=== PATIENT | female | born 1960 | race African-American/Black ===

== ENCOUNTER → 2016-09-08 | Outpatient (CLI) | payer MEDICARE, MEDICAID ==
[~2016-09-08] MED LIST: ALBU8.5H5 INH; AMIT25TA PO; AMLO5TAB2 PO; BACL-19 PO; BECL8.7A6 INH; BUSP10TA PO; GABA600T2 PO; HYDR25CA94 PO; METH500T7 PO; NAPR220C2 PO; QUET400T4 PO; TIZA2TAB PO
[2016-09-08 15:46] LABS: ASPARTATE AMINO TRANSFERASE 8 U/L (15-37); BLOOD UREA NITROGEN 16 mg/dL (7-18)
== END | disposition home or self-care (01) ==
LOC: CFH 14:47
PROVIDERS: ATTEND Physician Assistant
DX: K62.5 Hemorrhage of anus and rectum (principal); K62.89 Other specified diseases of anus and rectum; K52.9 Noninfective gastroenteritis and colitis, unspecified; R19.7 Diarrhea, unspecified
CPT/HCPCS: 36415; 80053; 84443; 85025

== ENCOUNTER 2017-05-12 11:39 | Emergency (ER) | payer MEDICARE, MEDICAID ==
[~2017-05-12] VITALS: Ht 157.5 cm; Wt 153.2 kg
[2017-05-12] MEDS ORDERED: ALBUTEROL/IPRATROPIUM 2.5MG/0.5MG, 3 ML NPPB ONE (13:00)
[2017-05-12] MEDS ORDERED: ALBUTEROL/IPRATROPIUM 2.5MG/0.5MG, 3 ML ONE (13:31)
[2017-05-12] MEDS ORDERED: SODIUM CHLORIDE 0.9% 1,000ML IVBOLUS ONE (14:00)
[2017-05-12 15:07] VITALS: BP 114/82
== END 2017-05-12 15:09 | disposition home or self-care (01) ==
LOC: ED 14:03
DX: M94.0 Chondrocostal junction syndrome [Tietze] (principal); J98.01 Acute bronchospasm; I10 Essential (primary) hypertension; J45.909 Unspecified asthma, uncomplicated; E66.01 Morbid (severe) obesity due to excess calories; Z68.44 Body mass index [BMI] 60.0-69.9, adult; G89.29 Other chronic pain; M54.2 Cervicalgia; Z90.49 Acquired absence of other specified parts of digestive tract; F17.210 Nicotine dependence, cigarettes, uncomplicated; Z86.14 Personal history of Methicillin resistant Staphylococcus aureus infection
CPT/HCPCS: 71046; 93005; 94640; 96360; 99285; J7030; J7512; J7620

== ENCOUNTER 2019-02-22 11:18 | Outpatient (CLI) | payer MEDICARE, MEDICAID ==
[~2019-02-22 11:18] MED LIST changes: +ALBU18HF INH; +AMIT50TA PO; +AMLO-150 PO; -AMLO5TAB2 PO; -GABA600T2 PO; +GABA600T7 PO; +QUET200T4 PO; +QUET25TA5 PO; -TIZA2TAB PO; +TIZA2TAB2 PO; +inhaler INH
[2019-02-22 13:25] LABS: T4 (THYROXINE) 9.1 mcg/dL (4.8-13.9)
== END 2019-02-22 23:59 | disposition home or self-care (01) ==
LOC: CFH 11:18
PROVIDERS: ATTEND Physician Assistant Medical
DX: Z01.810 Encounter for preprocedural cardiovascular examination (principal); G47.33 Obstructive sleep apnea (adult) (pediatric); I10 Essential (primary) hypertension; R06.02 Shortness of breath; E66.9 Obesity, unspecified
CPT/HCPCS: 36415; 84436; 84443; 84481

== ENCOUNTER → 2019-03-18 | Outpatient (CLI) | payer MEDICARE, MEDICAID | END | disposition home or self-care (01) | LOC: CVU 10:07 | PROVIDERS: ATTEND Physician Assistant Medical | DX: I34.8 Other nonrheumatic mitral valve disorders (principal); I51.7 Cardiomegaly; Z87.891 Personal history of nicotine dependence | CPT/HCPCS: 93306 ==

== ENCOUNTER 2019-04-27 09:46 | Emergency (ER) | payer MEDICAID, MEDICARE ==
[~2019-04-27] VITALS: Ht 157.5 cm; Wt 136.0 kg
[2019-04-27] MEDS ORDERED: BUDESONIDE 0.5 MG/2 ML INHA ONE (10:20)
[2019-04-27] MEDS ORDERED: ALBUTEROL/IPRATROPIUM 2.5MG/0.5MG, 3 ML ONE (10:20)
[2019-04-27] MEDS ORDERED: methylPREDNISolone SOD SUCC 125 MG/2 ML ONE (10:27)
[2019-04-27] MEDS ORDERED: ONDANSETRON 2MG/ML, 2ML ONE (10:27)
[2019-04-27] MEDS ORDERED: ONDANSETRON 2MG/ML, 2ML IVPush ONE (10:30)
[2019-04-27] MEDS ORDERED: BUDESONIDE 0.5 MG/2 ML INHA INH ONE (10:30)
[2019-04-27] MEDS ORDERED: methylPREDNISolone SOD SUCC 125 MG/2 ML IVPush ONE (10:30)
[2019-04-27] MEDS ORDERED: SODIUM CHLORIDE FLUSH 10ML SYR IVF ONE (10:30)
[2019-04-27] MEDS ORDERED: ALBUTEROL/IPRATROPIUM 2.5MG/0.5MG, 3 ML NPPB PRN (10:30)
[2019-04-27] MEDS ORDERED: SODIUM CHLORIDE 0.9% 1,000ML IVBOLUS ONE (10:30)
[2019-04-27 10:39] VITALS: BP 111/45
--- NOTE | 2019-04-27 10:44 | NUR ---
PT WITH C/O N/V X2 DAYS + DIARRHEA. PT STATES HAVING SOB STARTING 4 DAYS AGO, PT WITH HX OF ASTHMA. PT DENIES CP AT THIS TIME. PT TO BP, CARD MONITOR, CONT PULSE OX. PIV INITIATED AND PT MEDICATED PER MAR
[2019-04-27 10:47] LABS: ALANINE AMINOTRANSFERASE 19 U/L (12-78); ANION GAP 10 mmol/L (5-15); CALCIUM 8.7 mg/dL (8.5-10.1); CHLORIDE 108 mmol/L (98-107); CREATININE 0.94 mg/dL (0.55-1.02)
[2019-04-27 10:49] LABS: ALKALINE PHOSPHATASE 85 U/L (45-117); BILIRUBIN,TOTAL 0.7 mg/dL (0.2-1.0); TOTAL PROTEIN 7.5 g/dL (6.4-8.2)
[2019-04-27 11:04] LABS: BASOPHILS # (AUTO) 0.03 x10^3/uL (0-0.1); BASOPHILS % (AUTO) 0 % (0-1); EOSINOPHILS # (AUTO) 0.27 x10^3/uL (0-0.4); EOSINOPHILS % (AUTO) 3 % (1-7); LYMPHOCYTES # (AUTO) 2.39 x10^3/uL (1-3.4); LYMPHOCYTES % (AUTO) 29 % (22-44); MD NO; MEAN CORPUSCULAR HGB CONC 31.6 g/dL (32.4-35.8); MEAN CORPUSCULAR VOLUME 85.3 fL (80-100); MEAN PLATELET VOLUME 8.5 fL (7.4-10.4); MONOCYTES % (AUTO) 5 % (2-9); NEUTROPHILS # (AUTO) 5.07 x10^3/uL (1.8-6.8); NEUTROPHILS % (AUTO) 62 % (42-75); PLATELET COUNT 380 x10^3/uL (130-400); RED BLOOD COUNT 5.11 x10^6/uL (3.82-5.3); RED CELL DISTRIBUTION WIDTH 14.4 % (9.6-15.2)
[2019-04-27] MEDS ORDERED: SODIUM CHLORIDE 0.9%, 500ML IVBOLUS ONE (11:30)
== END 2019-04-27 12:49 ==
LOC: ED 11:40
DX: J20.8 Acute bronchitis due to other specified organisms (principal); R19.7 Diarrhea, unspecified; R11.10 Vomiting, unspecified; I10 Essential (primary) hypertension; J45.909 Unspecified asthma, uncomplicated; E66.01 Morbid (severe) obesity due to excess calories; Z87.891 Personal history of nicotine dependence; Z90.49 Acquired absence of other specified parts of digestive tract
CPT/HCPCS: 36415; 71045; 80053; 83735; 85025; 93005; 94640; 96361; 96374; 96375; 99284; J2405; J2930; J7030; J7040; J7620; J7626

== ENCOUNTER 2020-12-27 09:50 | Outpatient (CLI) | payer MEDICARE, MEDICAID ==
[~2020-12-27 09:50] MED LIST changes: +ALPR1TAB2 PO; +METH-639 PO; -METH500T7 PO; +TIZA-106 PO; -TIZA2TAB2 PO
== END 2020-12-27 23:59 | disposition home or self-care (01) ==
LOC: RAD 09:50
PROVIDERS: ATTEND Physical Medicine & Rehabilitation
DX: M50.31 Other cervical disc degeneration, high cervical region (principal); M25.78 Osteophyte, vertebrae
CPT/HCPCS: 72141